=== PATIENT | female | born 1990 | race Caucasian/White ===

== ENCOUNTER 2021-02-03 16:53 | Observation (INO) ==
[2021-02-03 17:47] LABS: Basophils # (auto) 0.01 K/uL (0-0.2); Basophils % (auto) 0.1 %; Eosinophils % (auto) 1.1 %; Hematocrit (blood only) 32.5 % (37-47); Hemoglobin 10.5 g/dL (12.0-16.0); Immature Granulocytes # (auto) 0.03 K/uL (0.00-0.02); Immature Granulocytes % (auto) 0.3 %; Lymphocytes # (auto) 2.31 K/uL (1.2-3.4); Lymphocytes % (auto) 25.5 %; Mean Corpuscular Hemoglobin 27.4 pg (25-34); Mean Corpuscular Volume 84.9 fL (80-100); Mean Platelet Volume 10.7 fL (7.4-10.4); Monocytes # (auto) 0.87 K/uL (0.11-0.59); Monocytes % (auto) 9.6 %; Neutrophils # (auto) 5.74 K/uL (1.4-6.5); Neutrophils % (auto) 63.4 %; Platelet Count 208 K/uL (130-400); RDW Coefficient of Variation 15.4 % (11.5-14.5); RDW Standard Deviation 47.4 fL (36.4-46.3); Red Blood Count 3.83 M/uL (4.2-5.4); White Blood Count 9.06 K/uL (4.8-10.8)
[2021-02-03 18:02] LABS: Mean Corpuscular Hgb Conc 32.3 g/dL (32-36)
--- NOTE | 2021-02-03 18:18 | Obstetrical Progress Note ---
Date of Service Patient with a history of chronic hypertension not currently on medication sent from the office with elevated blood pressures she reports a mild baseline heada reg she has some floaters in her eyes but no blind spots no right upper quadrant pain she states her baby is moving she has noticed February 03, 2021 Assessment & Plan Admission and Anticipated Discharge Date Admission Date: Blood pressures are elevated today. She has a history of chronic hypertension as well I spoke both with Dr. Ward and Dr. Martinez about this case if she had no history of hypertension in the past and we had not diagnosed her with chronic hypertension I think she meets the criteria for gestational hypertension with severe blood pressure ranges however her initial blood pressure after 5 minutes of sitting was 135/88 and then 1 5 minutes afterwards was 131/80 these are consistent with her blood pressures during most of her gestation. She has had some elevated pressures including a systolic of 165 which quickly reduced however this was during questioning during her intake. Her most recent blood pressure is 138/[address] Martinez as she may inherit the patient tomorrow her plan is to monitor for at least a couple more hours to see if her pressures normalized if they continue to throw significantly elevated blood pressures then I would consider magnesium and induction if they normalize she is still under 38 weeks I would suspect observation at this stage would be the best management plan. If the patient were already 38 weeks a day I would simply just induce her as well So in summary will monitor more blood pressures Results & Data ([facility]) Vital Signs (Past 12 Hours) Vital Signs Pulse Resp BP 02/03/21 17:53 81 144/100 H 02/03/21 17:43 74 165/99 H 02/03/21 17:35 18 02/03/21 17:32 87 150/95 H 02/03/21 17:22 82 131/80 02/03/21 17:12 80 135/88 PG Care Time/CCT Total # of Minutes Spent Total Time Spent with Patient: Total time spent is greater than 50% in coordination of care (as documented) at patient's floor/unit and/or counseling patient: Coding Level of Care Code None
[2021-02-03 18:39] LABS: Creatinine Clr Calc Pharmacy 124.9 ml/min; Est GFR (African American) 134.4
[2021-02-03 18:47] LABS: Protein Creatinine Ratio Urine 0.2 (0-0.2); Total Protein Urine Random 21.9 mg/dl (0-11.9)
--- NOTE | 2021-02-03 21:52 | Obstetrical Progress Note ---
Date of Service Long discussion with the patient her blood pressures have normalized her last E pressures are in the normal range the patient's headache is completely resolved I did review this case with Dr. 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 When she came to the hospital she was a bit anxious as she knew there was a possibility she would need to be induced the initial blood pressure was reasonable she had 1 or 2 that were elevated but these quickly resolved she was allowed to eat after normal blood work results were returned. Her headache instantly resolved and the patient is feeling well her nonstress test is reactive. I reviewed with Dr. Martinez 3 possible options and then reviewed with the patient 1 as we could induce her now she does have 2 blood pressures over the last 24 hours that are consistent with a sig elevation however again she has a history of chronic hypertension and has had pressures like this on other occasions periodically because these have quickly resolved I am not convinced she has superimposed gestational hypertension with severe features. The patient admits she does get anxious when she comes to the office so one of the plans we had reviewed was letting her go home and follow-up in the office for blood pressure check however she feels this will result in an elevated blood pressure check. A third option would be to monitor pressures overnight if they were to elevate again into any kind of concerning range I think it would be prudent to induce her at that time. We discussed the benefits of induction with hypertension we also discussed the risks as she is under 38 weeks and the rare but potential risks to the baby. The patient I agree monitoring overnight is reasonable and again induce if pressures increase again at the latest the patient will be allowed to go to 38 weeks February 03, 2021 Results & Data ([facility]) Vital Signs (Past 12 Hours) Vital Signs Temp Pulse Resp BP 02/03/21 21:33 96 H 135/87 02/03/21 21:23 90 136/83 02/03/21 21:12 99 H 139/78 02/03/21 21:02 83 131/87 02/03/21 20:52 75 129/80 02/03/21 20:43 75 133/81 02/03/21 20:32 82 125/83 02/03/21 20:22 78 135/87 02/03/21 20:12 74 147/87 H 02/03/21 20:03 83 149/95 H 02/03/21 19:53 78 136/88 02/03/21 19:42 82 124/82 02/03/21 19:32 77 141/89 H 02/03/21 19:22 64 135/89 02/03/21 19:12 98.8 F 73 18 156/93 H 02/03/21 19:02 77 159/86 H 02/03/21 18:52 75 133/89 02/03/21 18:43 82 138/89 02/03/21 18:32 68 148/89 H 02/03/21 17:53 81 144/100 H 02/03/21 17:43 74 165/99 H 02/03/21 17:35 18 02/03/21 17:32 87 150/95 H 02/03/21 17:22 82 131/80 02/03/21 17:12 80 135/88 PG Care Time/CCT Total # of Minutes Spent Total Time Spent with Patient: Total time spent is greater than 50% in coordination of care (as documented) at patient's floor/unit and/or counseling patient: Coding Level of Care Code None
--- NOTE | 2021-02-04 07:28 | Obstetrical Progress Note ---
Date of Service Blood pressures overnight have been in the normotensive range the patient symptoms have completely resolved she has no floaters no headache and no right upper quadrant pain patient feels well she admits she gets anxious at doctor's visits and that her blood pressures at home are in the much more normal range I reviewed this case with Dr. Martinez and Dr. Ward and the 3 of us debated different options such as induction today and follow-up on Sunday with induction on Sunday as to options we feel at this stage she does not quite meet the criteria for induction as she is a chronic hypertensive and that there are rare elevated blood pressures but she has had have been very fleeting and related to office visits or when she arrived and she was hearing the sound of an unmedicated . The patient will call us if she has any of the preeclampsia symptoms that we discussed and she will contact the on-call team she will make an appointment on Sunday and nonstress test and be induced on Sunday if things change prior to this then she will contact the on-call team February 04, 2021 Assessment & Plan Admission and Anticipated Discharge Date Admission Date: February 03, 2021 Results & Data ([facility]) Vital Signs (Past 12 Hours) Vital Signs Temp Pulse Resp BP 02/04/21 07:04 68 134/87 02/04/21 05:28 83 113/62 02/04/21 03:23 98.6 F 73 18 112/63 02/04/21 01:41 78 114/81 02/03/21 23:39 93 H 113/62 02/03/21 21:33 98.6 F 96 H 18 135/87 02/03/21 21:23 90 136/83 02/03/21 21:12 99 H 139/78 02/03/21 21:02 83 131/87 02/03/21 20:52 75 129/80 02/03/21 20:43 75 133/81 02/03/21 20:32 82 125/83 02/03/21 20:22 78 135/87 02/03/21 20:12 74 147/87 H 02/03/21 20:03 83 149/95 H 02/03/21 19:53 78 136/88 02/03/21 19:42 82 124/82 02/03/21 19:32 77 141/89 H PG Care Time/CCT Total # of Minutes Spent Total Time Spent with Patient: Total time spent is greater than 50% in coordination of care (as documented) at patient's floor/unit and/or counseling patient: Coding Level of Care Code 06147 Office/Outpt Visit, Est
--- NOTE | 2021-02-07 07:28 | Discharge Summary ---
Date of Service February 07, 2021 Hospital Course (1) Chronic hypertension affecting : Patient was at 37 weeks and a few days gestation with elevated blood pressures the patient is known to have chronic hypertension tension and had been treated in the past she is not currently on medications the patient had an elevated blood pressure in the office she admits that she has some anxiety with blood pressure readings coming to the office she has been taking her blood pressure at home and it has been in the diastolic 90 to systolic 130 range. Patient presented to the office Sunday with an elevated pressure and then was monitored at the hospital pressures in the hospital by faheem were incredibly reasonable she had 1 or 2 elevated blood pressures beyond her usual range the patient had no headache at the time of discharge initially she had a very mild headache she saw a few floaters but no scotoma she had no right upper quadrant pain her labs were normal for preeclampsia. In a discussion with the oncoming provider Dr. Martinez and Dr. Ward would be on for the weekend we monitor the patient overnight her blood pressures became in the normal range in the morning she was doing well we reviewed the option of induction however she was still below 38 weeks in her opinion had not met the criteria for severe features. We discussed letting the patient go home and be induced at 38 weeks which would be on Sunday of next week. She will come for an appointment Sunday we discussed that if any symptoms return including headache or visual problems to call the on-call provider soon as possible Coding Level of Care Code None Diagnoses Chronic hypertension affecting O10.919
== END 2021-02-04 08:00 | disposition home or self-care (01) ==
LOC: 4S1 16:53 → OPB 16:53 → 4S1 16:54
DX: O10.919 Unspecified pre-existing hypertension complicating pregnancy, unspecified trimester

== ENCOUNTER 2021-02-07 14:16 | Inpatient (IN) ==
[2021-02-07] MEDS ORDERED: OXYTOCIN 30 UNITS/500 ML BAG IV PRN ×2 (18:16)
[2021-02-07 19:34] LABS: Hematocrit (blood only) 33.4 % (37-47); Mean Corpuscular Hemoglobin 28.1 pg (25-34); Mean Corpuscular Hgb Conc 32.9 g/dL (32-36); Mean Corpuscular Volume 85.4 fL (80-100); Mean Platelet Volume 10.9 fL (7.4-10.4); Platelet Count 210 K/uL (130-400); RDW Coefficient of Variation 15.5 % (11.5-14.5); RDW Standard Deviation 48.4 fL (36.4-46.3); Red Blood Count 3.91 M/uL (4.2-5.4); White Blood Count 9.59 K/uL (4.8-10.8)
--- NOTE | 2021-02-07 21:12 | History & Physical Report ---
Date of Service February 07, 2021 Assessment & Plan (1) Chronic hypertension affecting : BPs have normalized upon arrival to L&D. Will admit for IOL. Carl bulb placed, insufflated with 35cc sterile water. Start low-dose pitocin overnight. Patient agreeable with plan. Admission and Anticipated Discharge Date Admission Date: February 07, 2021 History of Present Illness Chief Complaint: cHTN Primary Care Provider: Yehuda Kaity 30yo @ 37 03/07, IOL for cHTN scheduled for tomorrow. In office today, severe-range BPs. Was sent to L&D to start induction process. complicated by: CHTN *Baby ASA daily start 12-28 wks, continue until delivery *wkly NST's @32wks and twice wkly @36 wks *Serial Growth US @ 24wk (doppler only if abnml) *Baseline 24hr urine -156mg 08/08 *weekly RONNY's @ 32wk (if on meds) *Deliver [id number] Placenta Previa (tip covers os) 20 week U/S--resolved at 30 weeks GDM w/16wk glucola *Begin monthly AC Us's @24wks Allergies Allergy/AdvReac Type Severity Reaction Status Date / Time No Known Drug Allergies Allergy Unknown Uncoded 02/03/21 15:02 Home Medications Medication Instructions Recorded Confirmed Type prenat.vits,nico,[id number] 1 tab PO DAILY 07/13/20 02/07/21 History acetone (urine) test #50 ea 10/29/20 02/07/21 Rx blood sugar diagnostic #150 ea 10/29/20 02/07/21 Rx blood-glucose meter #1 ea 10/29/20 02/07/21 Rx lancets 33 gauge #150 ea 10/29/20 02/07/21 Rx aspirin [[facility] Aspirin] 81 mg PO DAILY 02/03/21 02/07/21 History Patient History Medical History Goiter Supervision of normal intrauterine in primigravida Surgical History No pertinent past surgical history Family History Grandmother (Maternal) Diabetes Father Hypertension Denies family history of Ovarian cancer Prostate cancer Myocardial infarction Breast cancer Colorectal cancer Social History (Updated 07/13/20 @ 13:51 by Sachi Marcial) Smoking Status: Never smoker Hx Alcohol Use: No Hx Substance Use: No Preferred Language: Jordanian Communication Ability: Effective Beliefs That Will Affect Care: None marital status: marital status details: John (30) [phone] Current Living Situation: Spouse Current Living Situation Comment: lives with spouse, 1 dog. 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 Other Information That Helps Us Care for You: No Feels Safe at Home: Yes Safety Concerns: Feels Safe At This Time Dental Care, Regularly: Yes Physical Activity Frequency: 3-4 Times per Week Assistive Devices: None Review of Systems All systems reviewed & are unremarkable except as noted in HPI & below Physical Exam Physical Exam: FHT Cat 1 [place] none SVE 50/-3 Constitutional: WD/WN, vitals as above Respiratory: normal respiratory effort, lungs clear to auscultation no respiratory distress Cardiovascular: Rate/Rhythm: regular rate and regular rhythm Gastrointestinal (Abdomen): Inspection/Auscultation: abdomen normal to inspection Percussion/Palpation: abdomen soft; abdomen nontender Gravid. No s/s chorio or abruption. Skin: no rashes, warm and dry Psychiatric: A+Ox3, euthymic affect Results & Data ([facility]) Vital Signs (Past 12 Hours) Vital Signs Temp Pulse Resp BP 02/07/21 18:58 37.5 C 101 H 18 133/86 02/07/21 16:30 20 02/07/21 15:50 18 02/07/21 15:31 89 117/75 02/07/21 15:15 92 H 131/84 02/07/21 15:00 20 02/07/21 14:41 18 02/07/21 14:32 85 138/94 Coding Level of Care Code None Diagnoses Chronic hypertension affecting O10.919
[2021-02-07] MEDS: LACTATED RINGER'S 1,000 ML IV PRN (21:13)
[2021-02-07] MEDS ORDERED: diphenhydrAMINE Capsule 25 MG CAP PO PRN (21:13)
[2021-02-07] MEDS ORDERED: CALCIUM CARBONATE 500 MG CHEWABLE TAB PO PRN (21:13)
[2021-02-07] MEDS ORDERED: CALCIUM CARBONATE 500 MG CHEWABLE TAB ONE (21:23)
[2021-02-08] MEDS: LACTATED RINGER'S 1,000 ML IV PRN ×4 (05:13→22:25)
--- NOTE | 2021-02-08 12:00 | Obstetrical Progress Note ---
Date of Service February 08, 2021 Assessment & Plan Admission and Anticipated Discharge Date Admission Date: February 07, 2021 Subjective felt cramping overnight- no PIH symptoms BP 143/83 cervical balloon has not fallen out yet FHT's Category 1- mild contractions every 5 minutes cervix exam - 4-5/100/-2 AROM for copious clear fluid hold pitocin dose for now- will increase as needed to maintain adequate contraction pattern epidural analgesia when requested Results & Data ([facility]) Vital Signs (Past 12 Hours) Vital Signs Temp Pulse Resp BP 02/08/21 11:07 88 137/85 02/08/21 11:06 98.4 F 20 02/08/21 10:19 83 146/81 H 02/08/21 09:26 80 134/81 02/08/21 08:22 78 135/83 02/08/21 07:15 98.2 F 77 20 143/83 H 02/08/21 07:10 76 152/102 H 02/08/21 06:18 75 18 111/71 02/08/21 05:17 72 18 120/78 02/08/21 04:18 68 18 123/74 02/08/21 03:17 98.6 F 67 18 108/62 02/08/21 02:17 78 18 125/79 02/08/21 01:18 69 18 111/65 02/08/21 00:16 77 18 132/80 PG Care Time/CCT Total # of Minutes Spent Total Time Spent with Patient: Total time spent is greater than 50% in coordination of care (as documented) at patient's floor/unit and/or counseling patient: Coding Level of Care Code None
[2021-02-08] MEDS ORDERED: NALOXONE HCL 0.4 MG/1 ML VIAL/CARP IV PRN ×2 (14:07→19:13)
[2021-02-08] MEDS ORDERED: ONDANSETRON INJ 2 MG/ML 2 ML VIAL IV PRN (14:07)
[2021-02-08] MEDS ORDERED: fentaNYL 2MCG/ML ROPIVACAINE 1.25MG/ML 100 ML BAG EPI PRN ×2 (14:07→19:13)
[2021-02-08] MEDS ORDERED: diphenhydrAMINE 50 MG/ML VIAL IV PRN ×2 (14:07→19:13)
[2021-02-08] MEDS ORDERED: ePHEDrine sulfate 50 MG/ML AMP IV PRN ×2 (14:07→19:13)
[2021-02-08] MEDS ORDERED: NALOXONE HCL 1 MG in SODIUM CHLORIDE 0.9% 1000ML 1,000 ML IV PRN ×2 (14:07→19:13)
--- NOTE | 2021-02-08 14:07 | Anesthesiology Consultation ---
Date of Service February 08, 2021 Assessment & Plan Chart Review Chart Review: Patient NOT seen in Pre Admission Testing and Acceptable Risk for Labor Epidural Consults Requested none Proposed Anesthesia Anesthesia Type: Labor Epidural Risk / Benefits Reviewed With: PT / POA / Parent / Guardian, Accepts Plan and Informed Consent Obtained History Height/Weight Height: 5 ft 2 in Weight: 90.718 kg Allergies Allergy/AdvReac Type Severity Reaction Status Date / Time No Known Drug Allergies Allergy Unknown Uncoded 02/03/21 15:02 Medications Home Medications Medication Instructions Recorded Confirmed Last Taken prenat.vits,nico,[id number] 1 tab PO DAILY 07/13/20 02/07/21 02/07/21 acetone (urine) test #50 ea 10/29/20 02/07/21 Unknown blood sugar diagnostic #150 ea 10/29/20 02/07/21 Unknown blood-glucose meter #1 ea 10/29/20 02/07/21 Unknown lancets 33 gauge #150 ea 10/29/20 02/07/21 Unknown aspirin [[facility] Darrian Aspirin] 81 mg PO DAILY 02/03/21 02/07/21 02/07/21 Active Medications Generic Name Dose Route Start Last Admin Trade Name Freq PRN Reason Stop Dose Admin Diphenhydramine HCl 25 mg 02/07/21 21:13 02/07/21 23:04 Diphenhydramine Capsule 25 Mg Cap PO 03/09/21 21:12 25 mg Q6 PRN Administration sleep Lactated Ringer's 1,000 mls @ 125 mls/hr 02/07/21 18:16 02/08/21 13:25 Lr IV 02/09/21 18:15 999 mls/hr .Q8H PRN Infusion L&D Protocol Protocol Oxytocin 30 units in 500 mls @ 8 mls/hr 02/07/21 18:16 02/08/21 13:07 Pitocin IV 02/09/21 18:15 0.48 units/hr .Q24H PRN 8 mls/hr Labor Induction/Augmentation Titration Protocol 0.48 UNITS/HR Past Medical History Medical History Goiter Supervision of normal intrauterine in primigravida Past Family History Family History Grandmother (Maternal) Diabetes Father Hypertension Denies family history of Ovarian cancer Prostate cancer Myocardial infarction Breast cancer Colorectal cancer Past Surgical History Surgical History No pertinent past surgical history Social History Smoking Status: Never smoker Hx Alcohol Use: No Hx Substance Use: No substance use type: does not use Physical Exam Vital Signs Last Vital Signs Temp 37.0 C 02/08/21 13:06 Pulse 80 02/08/21 13:06 Resp 20 02/08/21 13:06 BP 133/81 02/08/21 13:06 Testing Laboratory Results 02/07/21 18:32
[2021-02-08] MEDS ORDERED: fentaNYL citrate 100 MCG/2 ML VIAL ONE (14:49)
[2021-02-08] MEDS ORDERED: SODIUM CHLORIDE 0.9% INJ 10 ML VIAL ONE (14:49)
[2021-02-08] MEDS ORDERED: ePHEDrine sulfate 50 MG/ML AMP ONE (14:49)
[2021-02-08] MEDS ORDERED: BUPIVACAINE 0.25% 30 ML VIAL ONE (14:49)
[2021-02-08] MEDS ORDERED: fentaNYL 2MCG/ML ROPIVACAINE 1.25MG/ML 100 ML BAG EPI ONE (14:50)
[2021-02-08] MEDS ORDERED: NURSING L&D Epidural Breakthrough Pain Update ONE (17:31)
[2021-02-08] MEDS ORDERED: fentaNYL citrate 100 MCG/2 ML VIAL INJ STA (17:47)
[2021-02-09] MEDS ORDERED: oxyCODONE/ACETAMINOPHEN 5mg/325mg TAB PO PRN (02:58)
[2021-02-09] MEDS ORDERED: OXYTOCIN 30 UNITS/500 ML BAG IV PRN (02:58)
[2021-02-09] MEDS ORDERED: bisacodyL 10 MG SUPP PR PRN (02:58)
[2021-02-09] MEDS ORDERED: BENZOCAINE 20% AER SPR 82.5 GM CAN EXT PRN (02:58)
[2021-02-09] MEDS ORDERED: HYDROCORTISONE ACETATE 25 MG SUPP PR PRN (02:58)
[2021-02-09] MEDS ORDERED: SUPERCREAM 0.870% 15 GM JAR EXT PRN (02:58)
[2021-02-09] MEDS ORDERED: DIPHTHERIA/TETANUS/PERTUSSIS 0.5 ML SYR/VIAL IM ONE (02:58)
--- NOTE | 2021-02-09 03:09 | Delivery Summary ---
Vaginal Delivery Summary Date of Service February 09, 2021 Patient is a 30-year-old 1 P0 white female EDC of 02/22/2021 who presents for induction of labor because of chronic hypertension. She received a cervical balloon on the evening of 02/07/2021. Her induction was continued on the morning of 02/08/2021 with Pitocin augmentation. After the cervical balloon fell out, she was 4 cm dilated. Membranes were ruptured for clear fluid. She received effective epidural analgesia. An intrauterine pressure catheter was placed to manage her Pitocin. She progressed to full dilation, and pushed effectively over intact perineum for delivery of a viable male infant. After the head was delivered a loose nuchal cord was reduced. The rest of the infant delivered easily and was placed on the mother's abdomen for further attention and drying. Placenta was then expressed intact with a three-vessel cord. Incidentally, a true knot was noted in the cord. The infant was vigorous upon delivery after stimulation. There were bilateral labial abrasions that were not bleeding and therefore not repaired. Estimated blood loss is 200 cc. bleeding was controlled with dilute Pitocin. Mother and were doing well after delivery. Vaginal Delivery Summary [facility] Vaginal Delivery Charge Delivery Type Details: [facility]
[2021-02-09] MEDS: IBUPROFEN 600 MG TAB PO PRN ×4 (04:44→20:51)
--- NOTE | 2021-02-09 05:30 | Anesthesia Procedure Note ---
Date of Service February 09, 2021 Anesthesia Post Epidural Note Vital Signs Vital Signs: Temp Pulse Resp BP Pulse Ox 37.5 C 110 H 18 127/74 98 02/09/21 04:43 02/09/21 04:43 02/09/21 04:43 02/09/21 04:43 02/09/21 04:04 Pain Intensity Bilateral Back: Pain Intensity: 1 Notes Mental Status: alert / awake / arousable and participated in evaluation Nausea / Vomiting: adequately controlled Pain: adequately controlled Airway Patency, RR, SpO2: stable & adequate BP & HR: stable & adequate Hydration State: stable & adequate Neuraxial Anesthesia: was administered and sensory block is resolving Anesthetic Complications: no major complications apparent and Pt Satisfied with anesthetic care Epidural: Removed without complications and With tip intact Notes: Epidural site clean, dry and intact. No signs of edema, erythema or bruising at insertion site. Pt instructed to request anesthesia if she has residual lower extremity numbness or if she develops lower extremity pain or weakness, back pain or headache.
--- NOTE | 2021-02-09 07:29 | Obstetrical Progress Note ---
Date of Service February 09, 2021 Assessment & Plan (1) Encounter for care and examination after delivery: satisfactory progress continue watching BP's not necessary to restart antihypertensive meds yet- was on HCTZ prior to Subjective Ambulation: ambulating normally Voiding: no voiding problems Diet Tolerance:: regular diet Lochia:: Moderate Feeding Type:: bottle feeding no PIH symptoms this morning Physical Exam Constitutional WD/WN, vitals as above Psychiatric A+Ox3, euthymic affect Genitourinary OB Exam Abdomen: + fundal height Fundus: + firm and + relation to umbilicus (at U); not tender Results & Data ([facility]) Vital Signs (Past 12 Hours) Vital Signs Temp Pulse Pulse Resp BP BP Pulse Ox 02/09/21 05:10 99.0 F 94 H 18 127/80 98 02/09/21 04:43 99.5 F 110 H 18 127/74 02/09/21 04:28 99 H 129/74 02/09/21 04:13 110 H 20 127/74 02/09/21 04:04 105 H 98 02/09/21 03:59 106 H 128/74 97 02/09/21 03:54 96 H 98 02/09/21 03:49 94 H 97 02/09/21 03:44 102 H 97 02/09/21 03:43 103 H 18 143/76 H 98 02/09/21 03:39 103 H 98 02/09/21 03:34 99 H 97 02/09/21 03:29 104 H 97 02/09/21 03:28 97 H 128/65 02/09/21 03:26 104 H 18 97 02/09/21 03:24 107 H 96 02/09/21 03:19 103 H 96 02/09/21 03:14 99 H 96 02/09/21 03:13 96 H 128/65 02/09/21 03:11 104 H 18 97 02/09/21 03:09 102 H 96 02/09/21 03:04 106 H 96 02/09/21 02:59 112 H 97 02/09/21 02:58 112 H 20 129/66 97 02/09/21 02:54 113 H 97 02/09/21 02:49 109 H 96 02/09/21 02:44 98 H 97 02/09/21 02:43 100.0 F H 113 H 20 132/68 97 02/09/21 02:39 110 H 97 02/09/21 02:34 118 H 97 02/09/21 02:29 124 H 99 02/09/21 02:28 126 H 147/89 H 02/09/21 02:24 117 H 99 02/09/21 02:19 127 H 100 02/09/21 02:15 125 H 148/94 H 02/09/21 02:14 122 H 99 02/09/21 02:09 109 H 99 02/09/21 02:04 105 H 98 02/09/21 02:00 104 H 18 148/90 H 02/09/21 01:59 103 H 98 02/09/21 01:55 100.0 F H 02/09/21 01:54 106 H 99 02/09/21 01:49 96 H 97 02/09/21 01:44 97 H 125/66 98 02/09/21 01:39 98 H 98 02/09/21 01:34 101 H 99 02/09/21 01:30 18 02/09/21 01:29 111 H 119/63 98 02/09/21 01:24 109 H 99 02/09/21 01:19 93 H 98 02/09/21 01:14 99 H 97 02/09/21 01:13 106 H 130/82 02/09/21 01:09 92 H 98 02/09/21 01:04 100 H 97 02/09/21 01:00 100 H 18 128/83 02/09/21 00:59 94 H 97 02/09/21 00:54 95 H 98 02/09/21 00:49 106 H 98 02/09/21 00:48 108 H 135/93 02/09/21 00:44 94 H 98 02/09/21 00:39 105 H 98 02/09/21 00:34 97 H 99 02/09/21 00:30 18 02/09/21 00:29 95 H 98 02/09/21 00:28 101 H 134/79 02/09/21 00:24 101 H 99 02/09/21 00:19 100 H 98 02/09/21 00:14 120 H 98 02/09/21 00:09 106 H 99 02/09/21 00:04 102 H 98 02/09/21 00:00 18 05/11/21 23:59 101 H 97 02/08/21 23:54 91 H 97 02/08/21 23:49 89 97 02/08/21 23:44 82 96 02/08/21 23:39 90 97 02/08/21 23:34 92 H 98 02/08/21 23:30 18 02/08/21 23:29 95 H 125/80 98 02/08/21 23:24 92 H 98 02/08/21 23:19 92 H 98 02/08/21 23:15 96 H 133/71 02/08/21 23:14 96 H 99 02/08/21 23:09 93 H 99 02/08/21 23:04 90 97 02/08/21 23:00 99.0 F 82 18 115/68 02/08/21 22:59 83 97 02/08/21 22:54 83 97 02/08/21 22:49 84 97 02/08/21 22:44 88 115/63 97 02/08/21 22:39 84 97 02/08/21 22:34 85 98 02/08/21 22:30 90 18 118/72 02/08/21 22:29 88 97 02/08/21 22:24 86 98 02/08/21 22:19 82 97 02/08/21 22:14 89 132/70 97 02/08/21 22:09 88 97 02/08/21 22:04 91 H 98 02/08/21 21:59 90 18 133/76 98 02/08/21 21:54 89 97 02/08/21 21:49 96 H 98 02/08/21 21:44 92 H 97 02/08/21 21:43 93 H 138/85 02/08/21 21:39 80 98 02/08/21 21:34 89 97 02/08/21 21:29 91 H 139/85 97 02/08/21 21:24 91 H 98 02/08/21 21:19 94 H 98 02/08/21 21:14 89 99 02/08/21 21:13 104 H 134/82 02/08/21 21:09 106 H 98 02/08/21 21:04 95 H 99 02/08/21 21:00 99.0 F 20 02/08/21 20:59 99 H 132/84 97 02/08/21 20:54 91 H 97 02/08/21 20:49 90 97 02/08/21 20:44 89 98 02/08/21 20:43 89 140/85 02/08/21 20:39 88 97 02/08/21 20:34 94 H 98 02/08/21 20:31 95 H 137/88 02/08/21 20:30 20 02/08/21 20:29 97 H 98 02/08/21 20:24 103 H 99 02/08/21 20:19 101 H 98 02/08/21 20:14 94 H 97 02/08/21 20:13 93 H 147/88 H 02/08/21 20:09 88 96 02/08/21 20:04 91 H 96 02/08/21 19:59 92 H 18 133/86 98 02/08/21 19:54 84 97 02/08/21 19:49 87 97 02/08/21 19:44 92 H 97 02/08/21 19:43 89 142/86 H 02/08/21 19:39 93 H 96 02/08/21 19:34 94 H 97 02/08/21 19:30 18 02/08/21 19:29 115 H 98 02/08/21 19:28 100 H 145/94 H 02/08/21 19:26 105 H 141/87 H
[2021-02-09] MEDS: ACETAMINOPHEN 325 MG TAB PO PRN ×2 (08:34→19:27)
[2021-02-09] MEDS: DOCUSATE SODIUM 100 MG CAP PO SCH ×2 (08:34→20:49)
[2021-02-09] MEDS: PRENATAL VITAMIN 1 TAB PO SCH (08:34)
[2021-02-10] MEDS: IBUPROFEN 600 MG TAB PO PRN ×3 (00:54→09:02)
[2021-02-10 06:22] LABS: Hematocrit (blood only) 28.7 % (37-47); Hemoglobin 9.2 g/dL (12.0-16.0); Mean Corpuscular Hemoglobin 27.1 pg (25-34); Mean Corpuscular Hgb Conc 32.1 g/dL (32-36); Mean Corpuscular Volume 84.7 fL (80-100); Mean Platelet Volume 10.6 fL (7.4-10.4); Platelet Count 192 K/uL (130-400); RDW Coefficient of Variation 15.9 % (11.5-14.5); RDW Standard Deviation 48.5 fL (36.4-46.3); Red Blood Count 3.39 M/uL (4.2-5.4); White Blood Count 12.89 K/uL (4.8-10.8)
--- NOTE | 2021-02-10 06:24 | Obstetrical Progress Note ---
Date of Service <Preet Villalta MD - Last Filed: 02/10/21 07:43> February 10, 2021 Assessment & Plan <Preet Villalta MD - Last Filed: 02/10/21 07:43> (1) Chronic hypertension affecting : PPD #1 - s/p Doing well. Ambulating well. Voiding well. Continue routine care Blood pressures have remained at goal without need for additional medications Continue to monitor blood pressures in the setting of chronic hypertensionpatient previously on HCTZ prior to Following discharge to have follow-up in [address] Champagne Subjective <Preet Villalta MD - Last Filed: 02/10/21 07:43> Fiordaliza Ortiz is 30y/o PPD#1 s/p at 38 completed weeks complicated by chronic hypertension, placenta previa, gestational diabetes; ambulating without complication, voiding well, passing gas, having bowel movements, having improved/smaller amount of lochia, having intermittent cramping abdominal pain, tolerating oral intake without complication, or na usea/vomiting. Physical Exam <Preet Villalta MD - Last Filed: 02/10/21 07:43> HEENT: conjunctive pink, sclera anicteric Heart: regular rate, no appreciable murmur/gallop/rub Lungs: Clear to auscultation, no wheezes, rhonchi, or areas of decreased breath sounds Abdomen: uterine fundus firm, non-tender, 2cm below umbilicus Extremities: no cyanosis, edema, clubbing; nail beds pink; no calf tenderness Results & Data ([facility]) <Preet Villalta MD - Last Filed: 02/10/21 07:43> Vital Signs (Past 12 Hours) Vital Signs Temp Pulse Resp BP 02/10/21 05:35 37 C 71 18 124/87 02/09/21 23:25 36.9 C 76 18 112/74 02/09/21 19:40 36.6 C 80 18 126/86 Laboratory Results 02/10/21 Range/Units 05:54 WBC 12.89 H (4.8-10.8) K/uL RBC 3.39 L (4.2-5.4) M/uL Hgb 9.2 L (12.0-16.0) g/dL Hct 28.7 L (37-47) % MCV 84.7 (80-100) fL MCH 27.1 (25-34) pg MCHC 32.1 (32-36) g/dL RDW Std Deviation 48.5 H (36.4-46.3) fL RDW Coeff of Sheryl 15.9 H (11.5-14.5) % Plt Count 192 (130-400) K/uL MPV 10.6 H (7.4-10.4) fL Medications Administered Current Inpatient Medications Acetaminophen (Acetaminophen 325 Mg Tab) 650 mg PO Q6H PRN PRN Reason: Pain/CALDERON/Fever Stop: 03/11/21 02:57 Last Admin: 02/09/21 19:27 Dose: 650 mg Documented by: Benzocaine (Benzocaine 20% Aer Spr 82.5 Gm Can) 1 appln EXT PRN PRN PRN Reason: Perineal Discomfort Stop: 03/11/21 02:57 Last Admin: 02/09/21 04:44 Dose: 82.5 appln Documented by: Bisacodyl (Bisacodyl 5 Mg Tabec) 5 mg PO 1999 [facility] Stop: 02/10/21 20:01 Bisacodyl (Bisacodyl 10 Mg Supp) 10 mg OH DAILY PRN PRN Reason: No BM on 2nd post- day Stop: 03/11/21 02:57 Calcium Carbonate (Calcium Carbonate 500 Mg Chewable Tab) 1,500 mg PO Q6H PRN PRN Reason: Indigestion Stop: 03/09/21 21:12 Last Admin: 02/09/21 01:28 Dose: 1,500 mg Documented by: Cocaine HCl (Supercream 0.870% 15 Gm Jar) 1 gm EXT BID PRN PRN Reason: Hemorrhoidal Inflammation Stop: 02/23/21 02:57 Last Admin: 02/09/21 18:25 Dose: 1 appln Documented by: Diphenhydramine HCl (Diphenhydramine Capsule 25 Mg Cap) 25 mg PO Q6 PRN PRN Reason: sleep Stop: 03/09/21 21:12 Last Admin: 02/07/21 23:04 Dose: 25 mg Documented by: Docusate Sodium (Docusate Sodium 100 Mg Cap) 100 mg PO DAILY@ [facility] Stop: 03/11/21 07:59 Last Admin: 02/09/21 20:49 Dose: 100 mg Documented by: Hydrocortisone (Hydrocortisone Acetate 25 Mg Supp) 25 mg OH BID PRN PRN Reason: Hemorrhoidal Inflammation Stop: 03/11/21 02:57 Oxytocin (Pitocin) 30 units in 500 mls @ 333.333 mls/hr IV .Q1H30M PRN; Protocol PRN Reason: Bleeding Control Stop: 03/11/21 02:57 Ibuprofen (Ibuprofen 600 Mg Tab) 600 mg PO Q4H PRN PRN Reason: Pain/CALDERON/Cramping/Fever Stop: 03/11/21 02:57 Last Admin: 02/10/21 05:43 Dose: 600 mg Documented by: Oxycodone/Acetaminophen (Oxycodone/Acetaminophen 5mg/325mg Tab) 1 tab PO Q4H PRN PRN Reason: Pain not relieved by... Stop: 02/23/21 02:57 Prenat Multivit/[place]/Iron/Folic Ac ( Vitamin 1 Tab) 1 tab PO DAILY@08 JASON Stop: 03/11/21 07:59 Last Admin: 02/09/21 08:34 Dose: 1 tab Documented by: <Annmarie Weinstein MD, FACOG - Last Filed: 02/10/21 10:04> Co-Signing Physician Notes Resident Physician Supervision Note: I interviewed and examined the patient. Discussed with Dr. Villalta and agree with findings and plan as documented in the note. Any exceptions or clarifications are listed here: [None] Documented By: Annmarie Weinstein MD, FACOG Resident Activity Tracking <Preet Villalta MD - Last Filed: 02/10/21 07:43> Resident Involvement: Resident Care Provided Care Provided: OB Delivery
[2021-02-10] MEDS: DOCUSATE SODIUM 100 MG CAP PO SCH (09:02)
[2021-02-10] MEDS: PRENATAL VITAMIN 1 TAB PO SCH (09:02)
[2021-02-10] MEDS ORDERED: bisacodyL 5 MG TABEC PO SCH (20:00)
== END 2021-02-10 13:42 | disposition home or self-care (01) | DRG 807 ==
LOC: OPB 14:16 → 4S1 14:16 → 4S2 02-09 05:18

== ENCOUNTER 2024-06-13 17:58 | Inpatient (IN) ==
[2024-06-13] MEDS ORDERED: LIDOCAINE 1% LOCAL 20 ML VIAL INFIL PRN (22:21)
[2024-06-13] MEDS ORDERED: ACETAMINOPHEN 325 MG TAB PO PRN (22:21)
[2024-06-13] MEDS ORDERED: OXYTOCIN 30 UNITS/NSS 30 UNITS/500 ML BAG IV PRN (22:21)
--- NOTE | 2024-06-13 22:38 | History & Physical Report ---
Date of Service June 13, 2024 Assessment & Plan (1) Insulin controlled gestational diabetes mellitus (GDM) during : (2) Chronic hypertension affecting : (3) with 38 completed weeks gestation: Plan admit for iol. check blood sugars q 2 hrs to keep bg between 80-120. continue labetolol. STart with pitocin. arom when indicated. epidural on demand. fetus category one. anticipate . Admission and Anticipated Discharge Date Admission Date: June 13, 2024 History of Present Illness Chief Complaint: iol for chronic hypertension, controlled on meds Primary Care Provider: Kalani Pena PA-C Patient is a 33yowf with iup at 38 6/7 weeks who presents to labor and delivery for iol for chtn on meds, well controlled, and insulin requiring gdm. her cervix is favorable. She notes good fm. and Delivery Plans CHTN - Labetalol 50 mg PO TID *Baby ASA daily start 12-28 wks, continue until delivery *wkly NST's @32wks and twice wkly @36 wks *Serial Growth US @ 24 (doppler only if abnml) *Baseline 24hr urine (additioinal PRN)---128.5 5/6 *weekly RONNY's @ 32wk(If on Meds) *Deliver [id number] (If on Meds) *Deliver [id number] (Not on Meds) GDM on insulin *Wkly NSTs @32wks and Twice wkly @36wks *Serial growth US @28wks *Deliver by [facility] OB Labs: Blood Type A Positive 11/06/23 Antibody Screen NEGATIVE 11/06/23 Hgb 11.6 g/dl (12.0-16.0) L 04/02/24 Hct 34.7 % (37.0-47.0) L 04/02/24 MCV 91.4 fL (80.0-100.0) 11/06/23 Plt Count 213 K/uL (130-400) 11/06/23 Rubella IgG Antibody Immune (Immune) 11/06/23 RPR Nonreactive (Nonreactive) 11/06/23 Hep Bs Antigen Neg (Neg) 07/19/20 Hep Bs Antigen NON-REACTIVE (NON-REACTIVE) 11/06/23 Hepatitis C Ab (EIA) NON-REACTIVE (NON-REACTIVE) 11/06/23 HIV 1&2 Ab/P24 Ag 4thGn Neg (Neg) 07/19/20 HIV (1&2) Ag & Ab Conf NON-REACTIVE (NON-REACTIVE) 11/06/23 Glucose 1 Hr 50 gm 139 mg/dl (70-130) H 09/27/20 OB Optional Labs: Chlamydia trachomatis RNA Not Detected (NotDetected) 11/06/23 Neisseria gonorrhoeae RNA Not Detected (NotDetected) 11/06/23 Thyroid Stimulating Hormone (TSH) 1.640 uIu/ml (0.300-4.500) 07/19/20 Labs Reviewed: Declines genetics--mln gbs neg Allergies Allergy/AdvReac Type Severity Reaction Status Date / Time No Known Drug Allergies Allergy Unknown Verified 06/13/24 22:39 Home Medications Medication Instructions Recorded Confirmed Type albuterol sulfate 90 mcg/actuation g inhalation 10/16/22 06/12/24 History aerosol inhaler breast pump #1 ea 04/02/24 06/12/24 Rx acetone (urine) test (Ketone Urine #50 ea 04/07/24 06/12/24 Rx Test strips) blood sugar diagnostic (OneTouch #150 ea 04/07/24 06/12/24 Rx Verio test strips) lancets 33 gauge (OneTouch Delica #150 ea 04/07/24 06/12/24 Rx Plus Lancet) pen needle, diabetic 32 gauge x #100 ea 04/07/24 06/12/24 Rx 5/32" (BD Ultra-Fine Simona Pen Needle) insulin NPH isoph U-100 human 100 10 unit subcut QPM 06/13/24 06/13/24 History unit/mL (3 mL) subcutaneous pen (Novolin N FlexPen) labetalol 100 mg tablet 50 mg PO TID 06/13/24 06/13/24 History Patient History Medical History Varicella vaccination Cholelithiasis Acid reflux History of migraine Surgical History Hx laparoscopic cholecystectomy (07/13/21) Laparoscopic Cholecystectomy Dr. Hobson 07-13-2021 History of wisdom tooth extraction Family History Grandmother (Maternal) Diabetes Father Hypertension Other No family history of adverse response to anesthesia Denies family history of Ovarian cancer Prostate cancer Myocardial infarction Breast cancer Colorectal cancer Social History Smoking Status: Never smoker Second Hand Exposure: No; Do You Dip or Chew Tobacco: No; Hx Alcohol Use: Yes Hx Substance Use: No Preferred Language: Divehi Communication Ability: Effective Visual Impairment: No Limitations Engine Research Engineer Required: No Beliefs That Will Affect Care: None marital status: marital status details: John Ortiz [phone] Current Living Situation: Spouse and Family Current Living Situation Comment: lives with spouse, child, dog current occupational status: employed 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 Date GA wks Lbr Lgth wt Sex Type del Anes Place Del Prov ? Comment 02/09/21 38 7lb 9oz M Epidu [facility] Dr. 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 noncontributory Physical Exam Constitutional: WD/WN, vitals as above Gastrointestinal (Abdomen): soft, nt, nd Psychiatric: A+Ox3, euthymic affect Genitourinary: cx--3/50/-2/soft/mid toco--occasional contractions efm--145 with mod varaibiltiy, accels to 170s, no decels Results & Data Vital Signs (Past 12 Hours) Vital Signs Temp Pulse Resp BP 06/13/24 21:27 73 143/86 H 06/13/24 21:18 37.1 C 71 18 158/78 H 06/13/24 21:15 37.1 C 71 18 158/78 H Coding Level of Care Code None Diagnoses Insulin controlled gestational diabetes mellitus (GDM) during O24.414 Chronic hypertension affecting O10.919 with 38 completed weeks gestation Z3A.38
[2024-06-13] MEDS: LACTATED RINGER'S 1,000 ML IV PRN (22:54)
[2024-06-13] MEDS: OXYTOCIN 30 UNITS/NSS 30 UNITS/500 ML BAG IV PRN (22:56)
[2024-06-13] MEDS: LABETALOL HCL 100 MG TAB PO SCH (23:20)
[2024-06-13 23:28] LABS: Hematocrit (blood only) 32.6 % (37.0-47.0); Hemoglobin 10.7 g/dl (12.0-16.0); Mean Corpuscular Hemoglobin 28.8 pg (25.0-34.0); Mean Corpuscular Hgb Conc 32.8 g/dL (32.0-36.0); Mean Corpuscular Volume 87.9 fL (80.0-100.0); Platelet Count 198 K/uL (130-400); RDW Coefficient of Variation 14.6 % (11.5-14.5); RDW Standard Deviation 46.5 fL (36.4-46.3); Red Blood Count 3.71 M/uL (4.20-5.40); White Blood Count 8.36 K/ul (4.8-10.8)
--- NOTE | 2024-06-14 01:23 | Anesthesiology Consultation ---
Date of Service June 14, 2024 Assessment & Plan (1) Encounter for pre-operative examination: Chart Review Chart Review: Acceptable Risk for Labor Epidural History Height/Weight Height: 5 ft 2 in Weight: 91.172 kg Allergies Allergy/AdvReac Type Severity Reaction Status Date / Time No Known Drug Allergies Allergy Unknown Verified 06/13/24 22:39 Medications Home Medications Medication Instructions Recorded Confirmed Last Taken albuterol sulfate 90 mcg/actuation g inhalation 10/16/22 06/12/24 Unknown aerosol inhaler breast pump #1 ea 04/02/24 06/12/24 Unknown acetone (urine) test (Ketone Urine #50 ea 04/07/24 06/12/24 Unknown Test strips) blood sugar diagnostic (OneTouch #150 ea 04/07/24 06/12/24 Unknown Verio test strips) lancets 33 gauge (OneTouch Delica #150 ea 04/07/24 06/12/24 Unknown Plus Lancet) pen needle, diabetic 32 gauge x #100 ea 04/07/24 06/12/24 Unknown 5/32" (BD Ultra-Fine Simona Pen Needle) insulin NPH isoph U-100 human 100 10 unit subcut QPM 06/13/24 06/13/24 06/12/24 unit/mL (3 mL) subcutaneous pen (Novolin N FlexPen) labetalol 100 mg tablet 50 mg PO TID 06/13/24 06/13/24 06/13/24 13:30 Active Medications Generic Name Dose Route Start Last Admin Trade Name Freq PRN Reason Stop Dose Admin Lactated Ringer's 1,000 mls @ 125 mls/hr 06/13/24 22:21 06/14/24 00:56 Lr IV 06/15/24 22:20 125 mls/hr .Q8H PRN Infusion L&D Protocol Protocol Oxytocin 30 units in 500 mls @ 8 mls/hr 06/13/24 22:42 06/14/24 00:26 Pitocin 30 Units/Nss IV 06/15/24 22:41 0.48 units/hr .Q24H PRN 8 mls/hr Labor Induction/Augmentation Titration Protocol 0.48 UNITS/HR Labetalol HCl 50 mg 06/14/24 09:00 06/13/24 23:20 Labetalol Hcl 100 Mg Tab PO 07/14/24 08:59 50 mg TID JASON Administration Past Medical History Medical History (Updated 06/14/24 @ 01:23 by Sean Crespo MD) Insulin controlled gestational diabetes mellitus (GDM) during Hypertension Varicella vaccination Cholelithiasis Acid reflux History of migraine Past Family History Family History Grandmother (Maternal) Diabetes Father Hypertension Other No family history of adverse response to anesthesia Denies family history of Ovarian cancer Prostate cancer Myocardial infarction Breast cancer Colorectal cancer Past Surgical History Surgical History Hx laparoscopic cholecystectomy (07/13/21) Laparoscopic Cholecystectomy Dr. Hobson 07-13-2021 History of wisdom tooth extraction Social History Smoking Status: Never smoker Do You Dip or Chew Tobacco: No Hx Alcohol Use: Yes alcohol intake frequency: holidays/special occasions only Hx Substance Use: No substance use type: does not use Physical Exam Vital Signs Last Vital Signs Temp 37.1 C 06/13/24 21:18 Pulse 78 06/14/24 01:20 Resp 18 06/13/24 23:57 BP 146/86 H 06/14/24 01:10 Pulse Ox 96 06/14/24 01:20 Testing Laboratory Results 06/13/24 22:37 06/13/24 06/13/24 23:23 21:35 POC Glucose 98 94
[2024-06-14] MEDS: BUPIVACAINE 0.25% PF 30 ML VIAL ONE (01:46)
[2024-06-14] MEDS: LIDOCAINE 2%/EPINEPHRINE 1:200,000 20 ML PF ONE (01:46)
[2024-06-14] MEDS: fentaNYL citrate PF 100 MCG/2 ML VIAL ONE (01:47)
[2024-06-14] MEDS: fentANYL 2 MCG/ML BUPIVacaine 0.125%-NSS 100ML BAG ONE (01:48)
[2024-06-14] MEDS ORDERED: SODIUM CHLORIDE 0.9% PF INJ 10 ML VIAL EPI PRN (01:50)
[2024-06-14] MEDS ORDERED: fentaNYL citrate PF 100 MCG/2 ML VIAL EPI PRN (01:50)
[2024-06-14] MEDS ORDERED: ONDANSETRON INJ 2 MG/ML 2 ML VIAL IV PRN (01:50)
[2024-06-14] MEDS ORDERED: BUPIVACAINE 0.25% PF 30 ML VIAL EPI PRN (01:50)
[2024-06-14] MEDS ORDERED: LIDOCAINE 2% MPF LOCAL 5 ML VIAL EPI PRN (01:50)
[2024-06-14] MEDS ORDERED: NALOXONE HCL 0.4 MG/1 ML VIAL/CARP IV PRN (01:50)
[2024-06-14] MEDS ORDERED: NALOXONE HCL 1 MG in SODIUM CHLORIDE 0.9% 1,000 ML IV PRN (01:50)
[2024-06-14] MEDS ORDERED: ROPIVACAINE 0.5% PF 5 MG/ML 20 ML VIAL EPI PRN (01:50)
[2024-06-14] MEDS ORDERED: ePHEDrine sulfate 50 MG/ML AMP IV PRN (01:50)
[2024-06-14] MEDS: CALCIUM CARBONATE 500 MG CHEWABLE TAB PO PRN (01:58)
[2024-06-14] MEDS: ePHEDrine sulfate 50 MG/ML AMP ONE (02:27)
[2024-06-14] MEDS: SODIUM CHLORIDE 0.9% PF INJ 10 ML VIAL ONE (02:27)
[2024-06-14] MEDS: fentANYL 2 MCG/ML BUPIVacaine 0.125%-NSS 100ML BAG EPI PRN (11:02)
[2024-06-14 11:52] VITALS: O2SAT 96
[2024-06-14] MEDS ORDERED: BENZOCAINE 20% SPRY 85 APPLN/85 GM CAN EXT PRN (12:38)
[2024-06-14] MEDS ORDERED: HYDROCORTISONE ACETATE 25 MG SUPP PR PRN (12:38)
[2024-06-14] MEDS ORDERED: bisacodyL 10 MG SUPP PR PRN (12:38)
[2024-06-14] MEDS ORDERED: OXYTOCIN 30 UNITS/NSS 30 UNITS/500 ML BAG IV PRN (12:38)
--- NOTE | 2024-06-14 12:53 | Delivery Summary ---
Supervising Physician Co-Signing Physician Notes Progressed to 10 cm dilated 100% effaced +2 station and pushed over intact perineum with epidural anesthesia and delivered a viable male with weight and Apgars pending. Had the delivered without difficulty followed quickly followed by shoulders and body. was noted be vigorous upon delivery and a 1 minute delayed cord clamping was initiated. Cord was then double clamped and cut and attention turned to deliver the placenta. Placenta delivered intact with three-vessel cord gentle cord traction. No lacerations noted. No complications noted and blood loss per QBL. Vaginal Delivery Summary Date of Service June 14, 2024 Vaginal Delivery Summary [facility] Vaginal Delivery Charge Delivery Type Details: [facility]
[2024-06-14] MEDS: SODIUM CHLORIDE 0.9% PF INJ 10 ML VIAL EPI STA (13:06)
--- NOTE | 2024-06-14 13:58 | Anesthesia Procedure Note ---
Date of Service June 14, 2024 Anesthesia Post Epidural Note Vital Signs Vital Signs: Temp Pulse Resp BP Pulse Ox 36.7 C 83 20 135/75 96 06/14/24 11:08 06/14/24 13:52 06/14/24 11:08 06/14/24 13:52 06/14/24 11:51 Notes Mental Status: alert / awake / arousable and participated in evaluation Patient Amnestic to Procedure: No Nausea / Vomiting: adequately controlled Pain: adequately controlled Airway Patency, RR, SpO2: stable & adequate BP & HR: stable & adequate Hydration State: stable & adequate Neuraxial Anesthesia: was administered and sensory block resolved Anesthetic Complications: no major complications apparent and Pt Satisfied with anesthetic care Epidural: Removed without complications and With tip intact
[2024-06-14] MEDS: LIDOCAINE 2%/EPINEPHRINE 1:200,000 20 ML PF EPI STA (16:15)
[2024-06-14] MEDS: fentaNYL citrate PF 100 MCG/2 ML VIAL EPI STA (16:15)
[2024-06-14] MEDS: BUPIVACAINE 0.25% PF 30 ML VIAL EPI STA (16:16)
[2024-06-14] MEDS: ACETAMINOPHEN 325 MG TAB PO PRN (18:08)
[2024-06-14] MEDS: IBUPROFEN 600 MG TAB PO PRN (20:54)
[2024-06-14] MEDS: DOCUSATE SODIUM 100 MG CAP PO SCH (20:54)
[2024-06-14 21:23] VITALS: RESP 18
[2024-06-15] MEDS: FERROUS SULFATE 325 MG TAB PO SCH (08:40)
[2024-06-15] MEDS: PRENATAL VITAMIN 1 TAB PO SCH (08:40)
--- NOTE | 2024-06-15 08:42 | Obstetrical Progress Note ---
Date of Service June 15, 2024 Assessment & Plan (1) Chronic hypertension affecting : Day 1 status post vaginal delivery. Patient doing well. Stable for discharge as preferred (2) Encounter for care and examination after delivery: Subjective Ambulation: ambulating normally Voiding: no voiding problems Passing Gas:: Yes Diet Tolerance:: regular diet Lochia:: Moderate Feeding Type:: breast feeding Physical Exam Constitutional WD/WN, vitals as above Respiratory normal respiratory effort; no respiratory distress and no labored breathing Cardiovascular Extremities: no calf tenderness Gastrointestinal (Abdomen) Inspection/Auscultation: abdomen normal to inspection; abdomen not distended Percussion/Palpation: abdomen soft; abdomen nontender, no guarding and abdomen not rigid Genitourinary OB Exam Abdomen: + fundal height Fundus: + firm and + relation to umbilicus (Below); not tender or not boggy Results & Data Vital Signs (Past 12 Hours) Vital Signs Temp Pulse Resp BP O2 Del Method 06/15/24 04:30 36.5 C 78 18 128/80 Room Air 06/15/24 01:30 36.6 C 74 18 137/78 Room Air
[2024-06-15] MEDS: DIPHTHER/TETAN/PERTUS Vaccine (Tdap, Adol/Adult) 0.5mL IM ONE (08:44)
[2024-06-15 09:04] VITALS: BP 134/81; PULSE 59; TEMP 98.4
[2024-06-15] MEDS ORDERED: bisacodyL 5 MG TABEC PO SCH (20:00)
== END 2024-06-15 15:05 | disposition home or self-care (01) | DRG 806 ==
LOC: 4S1 21:03 → 4E2 06-14 16:16